=== PATIENT | male | born 1955 | race Caucasian/White ===

== ENCOUNTER 2019-08-13 19:27 | Emergency (ER) | payer BC ==
[2019-08-13] MEDS ORDERED: Diphtheria,Pertussis(Acell),Tetanus Vaccine 0.5 ML SDV IM ONE (20:03)
[2019-08-13] MEDS ORDERED: Lidocaine 1% 30 ML SDV INJECT ONE (20:03)
[2019-08-13] MEDS ORDERED: Bacitracin Oint 1 GM U/D Packet TOP ONE (21:42)
--- NOTE | 2019-08-13 21:42 | EDM.PDOC ---
ED HPI GENERAL MEDICAL PROBLEM - General Chief Complaint: Laceration Stated Complaint: LACERATION Time Seen by Provider: 08/13/19 19:45 Source of Information: Reports: Patient History Limitations: Reports: No Limitations - History of Present Illness INITIAL COMMENTS - FREE TEXT/NARRATIVE: Ed with laceration to right hand, patient stated was climbing up into boat and ladder broke, fell about 5 feet and caught hand on "trim tab", bumped nose on something and scrape to left hand. No loss of consciousness, did not hit head fell back onto back, No c/o back pain at this time. Hx of arthritis, only takes 4 regular strength aspirin every am. Has had tetnus previously, last felt achy after. 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 ED EXAM, SKIN/RASH Exam: See Below Exam Limited By: No Limitations General Appearance: Alert, Mild Distress Eye Exam: Bilateral Eye: EOMI Ears: Normal External Exam, Hearing Grossly Normal Nose: Other (light bruising and abrasion to right nose) Head: Atraumatic, Normocephalic Neck: Normal Inspection Respiratory/Chest: No Respiratory Distress, Lungs Clear, Normal Breath Sounds Cardiovascular: Normal Peripheral Pulses, Regular Rate, Rhythm Extremities: Normal Range of Motion Neurological: Alert, Oriented Skin: Warm, Wound/Incision (laceration right thenar v shaped 1x3.5cm) ED SKIN PROCEDURES - Laceration/Wound Repair Right Proximal Dorsal Hand Appearance: Subcutaneous, Irregular (v shape 1x 3.5) Distal NVT: Neuro & Vascular Intact Anesthetic Type: Local Local Anesthesia - Lidocaine (Xylocaine): 1% Plain Local Anesthetic Volume: 5cc Skin Prep: Chlorhexidine (Hibiciens), Isopropyl Alcohol (Alcohol) Saline Irrigation (cc's): 200 Exploration/Debridement/Repair: Wound Explored Closed with: Sutures Lac/Wound length In cm: 4.5 Suture Size: 4-0 # of Sutures: 16 Suture Type: Nylon, Interrupted Suture Size: 4-0 # of Sutures: 4 Repaired with: Vicryl Sterile Dressing Applied: Nurse Tetanus Status Addressed: Yes Complications: No Course - Vital Signs Last Recorded V/S: Last Vital Signs Temp 98.9 F 08/13/19 20:02 Pulse 87 08/13/19 20:02 Resp 19 08/13/19 20:02 BP 179/80 H 08/13/19 20:02 Pulse Ox 97 08/13/19 20:02 - Orders/Labs/Meds Orders: Active Orders 24 hr Category Date Time Status Vaccines to be Administered [RC] PER UNIT ROUTINE Care 08/13/19 20:04 Active Meds: Medications Discontinued Medications Generic Name Dose Route Start Last Admin Trade Name Freq PRN Reason Stop Dose Admin Bacitracin 1 dose 08/13/19 21:42 08/13/19 21:48 Bacitracin Oint 1 Gm TOP 08/13/19 21:43 1 dose ONETIME ONE Administration Cephalexin 500 mg 08/13/19 21:43 08/13/19 21:47 Keflex PO 08/13/19 21:44 500 mg ONETIME ONE Administration Diphtheria/Tetanus/Acell Pertussis 0.5 ml 08/13/19 20:03 08/13/19 20:47 Adacel IM 08/13/19 20:04 0.5 ml .ONCE ONE Administration Lidocaine HCl 30 ml 08/13/19 20:03 08/13/19 20:46 Xylocaine-Mpf 1% INJECT 08/13/19 20:04 30 ml ONETIME ONE Administration Departure - Departure Time of Disposition: 21:44 Disposition: Home, Self-Care 01 Condition: Good Clinical Impression: Fall Qualifiers: Encounter type: initial encounter Qualified Code(s): W19.XXXA - Unspecified fall, initial encounter Hand laceration Qualifiers: Encounter type: initial encounter Foreign body presence: without foreign body Laterality: right Qualified Code(s): S61.411A - Laceration without foreign body of right hand, initial encounter - Discharge Information *PRESCRIPTION DRUG MONITORING PROGRAM REVIEWED*: No *COPY OF PRESCRIPTION DRUG MONITORING REPORT IN PATIENT JOHANNA: No Instructions: Wound Infection, [id number], Laceration Care, Adult, Easy-to- Read Referrals: PCP,None [Primary Care Provider] - Forms: ED Department Discharge Additional Instructions: dressing change twice daily with antibiotic ointment one time daily keep covered while working elevate tonight keflex 500mg 3 times daily for one week clinic recheck wound this week sooner if redness drainage tylenol 650mg every 4 hours as needed for discomfort - My Orders Last 24 Hours: My Active Orders 08/13/19 20:04 Vaccines to be Administered [RC] PER UNIT ROUTINE - Assessment/Plan Last 24 Hours: My Active Orders 08/13/19 20:04 Vaccines to be Administered [RC] PER UNIT ROUTINE
[2019-08-13] MEDS ORDERED: Cephalexin 500 MG Cap PO ONE (21:43)
== END 2019-08-13 22:00 | disposition home or self-care (01) ==
LOC: DL.ED 19:27
DX: S61.411A Laceration without foreign body of right hand, initial encounter (principal); Z88.7 Allergy status to serum and vaccine; Z23 Encounter for immunization; W17.89XA Other fall from one level to another, initial encounter
CPT/HCPCS: 12004; 90715; 99282; A9270; J2001